=== PATIENT | male | born 1970 | race Two or more races ===

== ENCOUNTER 2016-06-13 17:01 | Emergency (ER) | payer MEDICAID ==
[~2016-06-13] VITALS: Ht 177.8 cm; Wt 121.1 kg
[~2016-06-13 17:01] MED LIST: AMLO10TA2 PO; INSLISPI SC; LEVEMIR SC; METF750T PO; METO100T87 PO
[2016-06-13 17:57] LABS: Basophils # (auto) 0.1 uL; DEFINITIVE VIEW TRANSMISSION; Eosinophils # (auto) 0.6 uL; Eosinophils % (auto) 8.6 % (0.0-7.0); Hemoglobin 13.1 g/dL (13.5-17.5); Lymphocytes # (auto) 2.5 uL; Lymphocytes % (auto) 33.2 % (10.0-50.0); Mean Corpuscular Hgb Conc. 31.9 g/dL (32.0-36.0); Mean Corpuscular Volume 68.8 fL (80.0-100.0); Mean Platelet Volume 8.9 fL (7.4-10.4); Monocytes # (auto) 0.6 uL; Monocytes % (auto) 8.7 % (0.0-12.0); Neutrophils # (auto) 3.6 uL; Neutrophils % (auto) 48.5 % (37.0-80.0); Platelet Count (auto) 361 10^3/uL (140-450); Red Cell Distribution Width 15.4 % (11.6-16.0); White Blood Cell 7.5 10^3/uL (4.4-10.8)
[2016-06-13] MEDS ORDERED: NITROGLYCERIN 2.5 MG CAP PO ONE (18:00)
[2016-06-13] MEDS ORDERED: LIDOCAINE VISCOUS 2% 15ML UD PO ONE (18:00)
[2016-06-13] MEDS ORDERED: DONNATAL 5ml ORAL Elix (BELLADONNA ALK-PHENOBARB) PO ONE (18:00)
[2016-06-13] MEDS ORDERED: ALUM & MAG HYDROX-SIMETH LIQ(MAALOX) 30 ML PO ONE (18:00)
[2016-06-13] MEDS ORDERED: ASPirin-EC 325mg tab PO ONE (18:00)
[2016-06-13 18:27] VITALS: BP 153/92
[2016-06-13 18:31] LABS: Albumin 3.6 g/dL (3.4-5.0); BUN/Creatinine Ratio 12.5; Bilirubin, Total 0.4 mg/dL (0.2-1.0); Calcium 8.8 mg/dL (8.5-10.1); Potassium 3.9 mmol/L (3.5-5.1); Total Protein 7.8 g/dL (6.4-8.2)
== END 2016-06-13 20:03 | disposition home or self-care (01) ==
LOC: ER 17:04
DX: R07.89 Other chest pain (principal); K21.9 Gastro-esophageal reflux disease without esophagitis; E11.9 Type 2 diabetes mellitus without complications; I10 Essential (primary) hypertension; Z88.0 Allergy status to penicillin; Z79.4 Long term (current) use of insulin
CPT/HCPCS: 36415; 71020; 80053; 84484; 85025; 93005

== ENCOUNTER 2016-10-08 09:59 | Inpatient (IN) | payer MEDICAID ==
[~2016-10-08] VITALS: Ht 177.8 cm; Wt 121.5 kg
[2016-10-08 10:35] LABS: Urine Bilirubin Negative (Negative); Urine Blood TRACE /uL (Negative); Urine Color Yellow (Yellow); Urine Nitrite Negative (Negative); Urine RBC 1 /hpf (0 - 3); Urine Squamous Epithelial Cell FEW /hpf (<5); Urine Urobilinogen Normal (Negative)
[2016-10-08 10:55] LABS: Urine Glucose 4+ mg/dL (Normal); Urine Ketone 2+ (Negative)
[2016-10-08 11:34] LABS: Basophils # (auto) 0.1 uL; Basophils % (auto) 0.7 % (0.0-2.0); CONDITION Y; DEFINITIVE SEE PRINTOUT; Eosinophils # (auto) 0.4 uL; Eosinophils % (auto) 4.6 % (0.0-7.0); Hematocrit 43.4 % (41.0-53.0); Hemoglobin 14.4 g/dL (13.5-17.5); Lymphocytes # (auto) 1.9 uL; Lymphocytes % (auto) 23.7 % (10.0-50.0); Mean Corpuscular Hemoglobin 22.6 pg (28.0-32.0); Mean Corpuscular Hgb Conc. 33.1 g/dL (32.0-36.0); Mean Corpuscular Volume 68.2 fL (80.0-100.0); Mean Platelet Volume 8.9 fL (7.4-10.4); Monocytes # (auto) 0.6 uL; Monocytes % (auto) 8.2 % (0.0-12.0); Neutrophils % (auto) 62.8 % (37.0-80.0); Platelet Count (auto) 346 10^3/uL (140-450); Red Cell Distribution Width 16.4 % (11.6-16.0); White Blood Cell 7.9 10^3/uL (4.4-10.8)
[2016-10-08 11:49] LABS: Albumin 3.4 g/dL (3.4-5.0); BUN/Creatinine Ratio 9.9; Bilirubin, Total 0.5 mg/dL (0.2-1.0); Calcium 8.5 mg/dL (8.5-10.1); Potassium 3.4 mmol/L (3.5-5.1); Total Protein 7.8 g/dL (6.4-8.2)
[2016-10-08] MEDS ORDERED: ASPirin-EC 81 mg tab PO ONE (12:00)
[2016-10-08] MEDS ORDERED: DILTIAZEM HCL 25 MG/5 ML VIAL IV ONE ×2 (12:00→13:15)
[2016-10-08 12:17] LABS: Giant Platelets Few; Microcytosis Slight; Platelet Estimate Adequate
[2016-10-08] MEDS ORDERED: LABETALOL HCL 5 MG/ML 4ML SYRINGE IV PRN (13:45)
[2016-10-08] MEDS ORDERED: DEXTROSE (50%) 50ML SYRG IV PRN (13:45)
[2016-10-08] MEDS ORDERED: LABETALOL HCL 5 MG/ML 4ML SYRINGE IV ONE (13:45)
[2016-10-08] MEDS ORDERED: cloNIDine HCL 0.1 MG TAB PO PRN (13:45)
[2016-10-08] MEDS ORDERED: CLOPIDOGREL BISULFATE 75 MG TAB PO ONE (14:00)
[2016-10-08] MEDS ORDERED: ZOLPIDEM TARTRATE 5 MG TAB PO PRN (14:00)
[2016-10-08] MEDS ORDERED: NITROGLYCERIN 0.4 MG SL TAB SL PRN ×2 (14:00)
[2016-10-08] MEDS ORDERED: ALUM & MAG HYDROX-SIMETH LIQ(MAALOX) 30 ML PO ONE (14:00)
[2016-10-08] MEDS ORDERED: ACETAMINOPHEN 325 MG TAB PO PRN (14:00)
[2016-10-08] MEDS ORDERED: ONDANSETRON HCL 4 MG/2 ML VIAL IV PRN (14:00)
[2016-10-08] MEDS ORDERED: LORazepam 0.5 MG TAB PO PRN (14:00)
[2016-10-08] MEDS ORDERED: ENALAPRIL MALEATE 2.5 MG TAB PO ONE (14:00)
[2016-10-08] MEDS ORDERED: DOCUSATE SOD 100 MG CAP PO ONE (14:00)
[2016-10-08] MEDS ORDERED: MORPHINE SULF INJ 2 MG/ML SYRINGE 1ML IV PRN ×2 (14:00)
[2016-10-08] MEDS: POTASSIUM CHL 10 Meq TABLET PO SCH (14:02)
[2016-10-08] MEDS: amLODIPine BESYLATE 5 MG TAB PO SCH (14:02)
[2016-10-08] MEDS: DILTIAZEM 125mg/125ml BAG KIT 125 ML IV SCH (14:50)
[2016-10-08] MEDS: SODIUM CHLOR 0.9% PF (SALINE LOCK) 10ML VIAL IV SCH ×2 (14:50→22:05)
[2016-10-08] MEDS ORDERED: POTASSIUM CHL 10% (20 MEQ/15ML) ORAL SOLN PO ONE ×2 (15:15→18:45)
[2016-10-08] MEDS ORDERED: METOPROLOL TARTRATE 1MG/1ML-5ML VIAL IV ONE ×3 (16:45→18:30)
[2016-10-08] MEDS: InsuLIN REG 1unit/0.01ml Soln (100units/ml) SC SCH ×2 (17:07→22:20)
[2016-10-08] MEDS: ACCU-CHEK COMFORT CURVE STRIP VI SCH ×2 (17:07→22:11)
[2016-10-08] MEDS ORDERED: METOPROLOL SUCCINATE XL 50 MG TAB PO SCH (22:00)
[2016-10-08] MEDS: METOPROLOL SUCCINATE XL 50 MG TAB PO SCH (22:00)
[2016-10-08] MEDS: ENALAPRIL MALEATE 2.5 MG TAB PO SCH (22:00)
[2016-10-08] MEDS: APIXABAN 5 MG TAB PO SCH (22:17)
[2016-10-08] MEDS: ATORVASTATIN 20 MG TAB PO SCH (22:17)
[2016-10-08] MEDS: INSULIN DETEMIR(LEVEMIR) 1unit/0.01ml Soln (100units/ml) SC SCH (22:21)
[2016-10-09] MEDS: DILTIAZEM 125mg/125ml BAG KIT 125 ML IV SCH (02:01)
[2016-10-09 04:05] LABS: Basophils # (auto) 0.1 uL; Basophils % (auto) 0.7 % (0.0-2.0); CONDITION Y; DEFINITIVE SEE PRINTOUT; Eosinophils # (auto) 0.4 uL; Eosinophils % (auto) 4.7 % (0.0-7.0); Hematocrit 39.3 % (41.0-53.0); Hemoglobin 12.8 g/dL (13.5-17.5); Lymphocytes # (auto) 3.4 uL; Lymphocytes % (auto) 40.3 % (10.0-50.0); Mean Corpuscular Hemoglobin 22.7 pg (28.0-32.0); Mean Corpuscular Hgb Conc. 32.6 g/dL (32.0-36.0); Mean Corpuscular Volume 69.7 fL (80.0-100.0); Mean Platelet Volume 8.9 fL (7.4-10.4); Monocytes # (auto) 0.8 uL; Neutrophils # (auto) 3.8 uL; Neutrophils % (auto) 44.3 % (37.0-80.0); Platelet Count (auto) 359 10^3/uL (140-450); Red Cell Distribution Width 16.4 % (11.6-16.0); White Blood Cell 8.5 10^3/uL (4.4-10.8)
[2016-10-09 04:25] LABS: BUN/Creatinine Ratio 9.9; Bilirubin, Total 0.5 mg/dL (0.2-1.0); Magnesium 2.2 mg/dL (1.6-2.6); Potassium 3.4 mmol/L (3.5-5.1); Total Protein 6.7 g/dL (6.4-8.2)
[2016-10-09] MEDS: SODIUM CHLOR 0.9% PF (SALINE LOCK) 10ML VIAL IV SCH ×3 (05:25→22:15)
[2016-10-09 06:02] LABS: B-Type Natriuretic Peptide 46.99 pg/mL (0-100)
[2016-10-09 06:04] LABS: Temperature: 23.5 C (20.0-25.0)
[2016-10-09] MEDS: ACCU-CHEK COMFORT CURVE STRIP VI SCH ×4 (06:36→22:18)
[2016-10-09] MEDS: InsuLIN REG 1unit/0.01ml Soln (100units/ml) SC SCH ×4 (06:36→22:18)
[2016-10-09 08:54] VITALS: BP 143/78
[2016-10-09] MEDS ORDERED: ADENOSINE 103 MG in GIVE UN-DILUTED 0 ML IV ONE (09:45)
[2016-10-09] MEDS: ASPirin 81 mg TAB PO SCH ×2 (10:00→12:02)
[2016-10-09] MEDS: METOPROLOL SUCCINATE XL 50 MG TAB PO SCH ×3 (10:00→22:17)
[2016-10-09] MEDS: POTASSIUM CHL 10 Meq TABLET PO SCH ×2 (10:00→12:02)
[2016-10-09] MEDS: DOCUSATE SOD 100 MG CAP PO SCH ×2 (10:00→12:02)
[2016-10-09] MEDS: APIXABAN 5 MG TAB PO SCH ×2 (10:00→22:15)
[2016-10-09] MEDS: amLODIPine BESYLATE 5 MG TAB PO SCH ×2 (10:00→12:03)
[2016-10-09] MEDS: CLOPIDOGREL BISULFATE 75 MG TAB PO SCH ×2 (10:00→12:03)
[2016-10-09] MEDS: ENALAPRIL MALEATE 2.5 MG TAB PO SCH ×3 (10:00→22:00)
[2016-10-09 13:00] VITALS: BP 141/95
[2016-10-09 17:00] VITALS: BP 141/92
[2016-10-09 20:00] VITALS: BP 132/81
[2016-10-09 21:30] VITALS: BP 132/81
[2016-10-09] MEDS: ATORVASTATIN 20 MG TAB PO SCH (22:15)
[2016-10-09] MEDS: INSULIN DETEMIR(LEVEMIR) 1unit/0.01ml Soln (100units/ml) SC SCH (22:26)
[2016-10-10 05:00] VITALS: BP 128/79
[2016-10-10 05:39] LABS: Basophils # (auto) 0.1 uL; Basophils % (auto) 0.9 % (0.0-2.0); CONDITION Y; DEFINITIVE SEE PRINTOUT; Eosinophils # (auto) 0.5 uL; Eosinophils % (auto) 5.4 % (0.0-7.0); Hematocrit 42.5 % (41.0-53.0); Hemoglobin 13.8 g/dL (13.5-17.5); Lymphocytes # (auto) 2.9 uL; Lymphocytes % (auto) 33.5 % (10.0-50.0); Mean Corpuscular Hemoglobin 22.8 pg (28.0-32.0); Mean Corpuscular Hgb Conc. 32.5 g/dL (32.0-36.0); Mean Corpuscular Volume 70.2 fL (80.0-100.0); Mean Platelet Volume 9.1 fL (7.4-10.4); Monocytes # (auto) 0.9 uL; Monocytes % (auto) 9.8 % (0.0-12.0); Neutrophils # (auto) 4.4 uL; Neutrophils % (auto) 50.4 % (37.0-80.0); Platelet Count (auto) 374 10^3/uL (140-450); Red Cell Distribution Width 16.5 % (11.6-16.0); White Blood Cell 8.7 10^3/uL (4.4-10.8)
[2016-10-10 06:06] LABS: Albumin 3.1 g/dL (3.4-5.0); BUN/Creatinine Ratio 13.5; Bilirubin, Total 0.5 mg/dL (0.2-1.0); Calcium 8.5 mg/dL (8.5-10.1); Total Protein 7.1 g/dL (6.4-8.2)
[2016-10-10] MEDS: SODIUM CHLOR 0.9% PF (SALINE LOCK) 10ML VIAL IV SCH (06:29)
[2016-10-10] MEDS: ACCU-CHEK COMFORT CURVE STRIP VI SCH (06:31)
[2016-10-10] MEDS: InsuLIN REG 1unit/0.01ml Soln (100units/ml) SC SCH (06:32)
[2016-10-10 09:00] VITALS: BP 140/90
[2016-10-10] MEDS: CLOPIDOGREL BISULFATE 75 MG TAB PO SCH (10:38)
[2016-10-10] MEDS: METOPROLOL SUCCINATE XL 50 MG TAB PO SCH (10:38)
[2016-10-10] MEDS: ENALAPRIL MALEATE 2.5 MG TAB PO SCH (10:39)
[2016-10-10] MEDS: POTASSIUM CHL 10 Meq TABLET PO SCH (10:39)
[2016-10-10] MEDS: amLODIPine BESYLATE 5 MG TAB PO SCH (10:39)
[2016-10-10] MEDS: APIXABAN 5 MG TAB PO SCH (10:40)
[2016-10-10 13:00] VITALS: BP 147/96
== END 2016-10-10 14:00 | disposition home or self-care (01) | DRG 201 ==
LOC: ER 09:59 → TELE 10:00 → TELE-CENTR 10-09 08:29
PROVIDERS: ADMIT Nurse Practitioner Family; ATTEND Internal Medicine
DX: I48.92 Unspecified atrial flutter (principal); I11.0 Hypertensive heart disease with heart failure; E87.8 Other disorders of electrolyte and fluid balance, not elsewhere classified; E87.1 Hypo-osmolality and hyponatremia; E87.6 Hypokalemia; E66.01 Morbid (severe) obesity due to excess calories; Z68.38 Body mass index [BMI] 38.0-38.9, adult; E11.9 Type 2 diabetes mellitus without complications; R07.89 Other chest pain; I48.91 Unspecified atrial fibrillation; Z82.49 Family history of ischemic heart disease and other diseases of the circulatory system; Z83.3 Family history of diabetes mellitus; Z88.0 Allergy status to penicillin; Z79.4 Long term (current) use of insulin; Z90.89 Acquired absence of other organs; Z71.89 Other specified counseling
CPT/HCPCS: 36415; 71010; 78452; 80053; 80061; 80307; 81001; 82962; 83036; 83735; 83880; 84484; 85025; 93005; 93017; 93306; 96374; 96376; J0153; J1815; J3490

== ENCOUNTER 2016-11-07 18:08 | Inpatient (IN) | payer MEDICAID ==
[~2016-11-07] VITALS: Ht 177.8 cm; Wt 121.1 kg
[2016-11-07] MEDS ORDERED: SODIUM CHLORIDE 0.9% 1,000 ML IV ONE (18:30)
[2016-11-07 18:38] LABS: Basophils # (auto) 0.1 uL; Basophils % (auto) 0.7 % (0.0-2.0); CONDITION Y; DEFINITIVE SEE PRINTOUT; Eosinophils # (auto) 0.4 uL; Eosinophils % (auto) 4.4 % (0.0-7.0); Hematocrit 43.6 % (41.0-53.0); Hemoglobin 14.2 g/dL (13.5-17.5); Lymphocytes # (auto) 3.6 uL; Lymphocytes % (auto) 36.8 % (10.0-50.0); Mean Corpuscular Hemoglobin 22.9 pg (28.0-32.0); Mean Corpuscular Hgb Conc. 32.5 g/dL (32.0-36.0); Mean Corpuscular Volume 70.5 fL (80.0-100.0); Mean Platelet Volume 8.7 fL (7.4-10.4); Monocytes # (auto) 0.9 uL; Monocytes % (auto) 8.9 % (0.0-12.0); Neutrophils # (auto) 4.8 uL; Neutrophils % (auto) 49.2 % (37.0-80.0); Platelet Count (auto) 435 10^3/uL (140-450); Red Cell Distribution Width 16.5 % (11.6-16.0); White Blood Cell 9.7 10^3/uL (4.4-10.8)
[2016-11-07 19:05] LABS: Albumin 3.7 g/dL (3.4-5.0); BUN/Creatinine Ratio 13.7; Bilirubin, Total 0.4 mg/dL (0.2-1.0); Calcium 8.9 mg/dL (8.5-10.1); Potassium 3.8 mmol/L (3.5-5.1); Total Protein 8.4 g/dL (6.4-8.2)
[2016-11-07] MEDS ORDERED: DILTIAZEM HCL 25 MG/5 ML VIAL IV ONE (20:00)
[2016-11-07] MEDS ORDERED: ASPirin 81 mg TAB PO ONE (20:00)
[2016-11-07] MEDS ORDERED: DILTIAZEM 125mg/125ml BAG KIT 100 ML IV SCH (21:01)
[2016-11-07] MEDS ORDERED: TEMAZEPAM 15 MG CAP PO PRN (22:00)
[2016-11-07] MEDS ORDERED: NITROGLYCERIN 0.4 MG SL TAB SL PRN (22:00)
[2016-11-07] MEDS ORDERED: MORPHINE SULF INJ 2 MG/ML SYRINGE 1ML IV PRN (22:00)
[2016-11-07] MEDS ORDERED: ACETAMINOPHEN 325 MG TAB PO PRN (22:00)
[2016-11-07] MEDS ORDERED: HYDROcodone-ACET 5/325MG TAB PO PRN (22:00)
[2016-11-07] MEDS ORDERED: ONDANSETRON HCL 4 MG/2 ML VIAL IV PRN (22:00)
[2016-11-07] MEDS ORDERED: DEXTROSE (50%) 50ML SYRG IV PRN (22:30)
[2016-11-07] MEDS: METOPROLOL TARTRATE 50 MG TAB PO SCH (22:51)
[2016-11-07] MEDS: FAMOTIDINE 20 MG TAB PO SCH (22:51)
[2016-11-07] MEDS: ATORVASTATIN 20 MG TAB PO SCH (22:51)
[2016-11-08] MEDS: ACCU-CHEK COMFORT CURVE STRIP VI SCH ×4 (00:01→17:37)
[2016-11-08] MEDS: InsuLIN REG 1unit/0.01ml Soln (100units/ml) SC SCH ×4 (00:04→17:37)
[2016-11-08 06:10] LABS: Basophils # (auto) 0.1 uL; Basophils % (auto) 1.1 % (0.0-2.0); CONDITION Y; DEFINITIVE SEE PRINTOUT; Eosinophils # (auto) 0.4 uL; Eosinophils % (auto) 4.9 % (0.0-7.0); Hematocrit 39.6 % (41.0-53.0); Hemoglobin 12.9 g/dL (13.5-17.5); Lymphocytes # (auto) 2.3 uL; Lymphocytes % (auto) 31.4 % (10.0-50.0); Mean Corpuscular Hemoglobin 22.8 pg (28.0-32.0); Mean Corpuscular Hgb Conc. 32.6 g/dL (32.0-36.0); Mean Corpuscular Volume 69.8 fL (80.0-100.0); Mean Platelet Volume 8.6 fL (7.4-10.4); Monocytes # (auto) 0.7 uL; Monocytes % (auto) 9.5 % (0.0-12.0); Neutrophils # (auto) 3.8 uL; Neutrophils % (auto) 53.1 % (37.0-80.0); Platelet Count (auto) 380 10^3/uL (140-450); Red Cell Distribution Width 16.8 % (11.6-16.0); White Blood Cell 7.3 10^3/uL (4.4-10.8)
[2016-11-08 06:28] LABS: Albumin 3.3 g/dL (3.4-5.0); BUN/Creatinine Ratio 14.1; Bilirubin, Total 0.6 mg/dL (0.2-1.0); Potassium 3.6 mmol/L (3.5-5.1); Total Protein 7.3 g/dL (6.4-8.2)
[2016-11-08 09:08] VITALS: BP 140/87
[2016-11-08] MEDS ORDERED: APIX5TAB OR (09:30)
[2016-11-08] MEDS ORDERED: CLON0.1T PO (09:30)
[2016-11-08] MEDS ORDERED: ASPI81TA27 PO (09:30)
[2016-11-08 09:56] LABS: Urine Bilirubin Negative (Negative); Urine Blood Negative /uL (Negative); Urine Color Yellow (Yellow); Urine Ketone Negative (Negative); Urine Nitrite Negative (Negative); Urine RBC <1 /hpf (0 - 3); Urine Squamous Epithelial Cell FEW /hpf (<5); Urine Urobilinogen Normal (Negative); Urine pH 6.5 (5.0-8.0)
[2016-11-08 09:57] LABS: Urine Glucose 4+ mg/dL (Normal)
[2016-11-08 10:00] VITALS: BP 121/76
[2016-11-08] MEDS: METOPROLOL TARTRATE 50 MG TAB PO SCH (10:00)
[2016-11-08] MEDS: ASPirin 81 mg TAB PO SCH (10:00)
[2016-11-08] MEDS: FAMOTIDINE 20 MG TAB PO SCH ×2 (10:01→22:04)
[2016-11-08] MEDS: amLODIPine BESYLATE 5 MG TAB PO SCH (10:01)
[2016-11-08 13:00] VITALS: BP 126/77
[2016-11-08 16:46] VITALS: BP 120/71
[2016-11-08] MEDS: METOPROLOL SUCCINATE XL 50 MG TAB PO SCH (17:09)
[2016-11-08] MEDS ORDERED: POTASSIUM CHL 10% (20 MEQ/15ML) ORAL SOLN PO ONE (17:15)
[2016-11-08 21:44] VITALS: BP 120/76
[2016-11-08] MEDS: ATORVASTATIN 20 MG TAB PO SCH (22:04)
[2016-11-09] MEDS: ACCU-CHEK COMFORT CURVE STRIP VI SCH ×2 (00:11→05:24)
[2016-11-09] MEDS: InsuLIN REG 1unit/0.01ml Soln (100units/ml) SC SCH ×2 (00:11→05:24)
[2016-11-09 04:38] VITALS: BP 138/92
[2016-11-09 09:00] VITALS: BP 128/78
[2016-11-09] MEDS: ASPirin 81 mg TAB PO SCH (10:20)
[2016-11-09] MEDS: METOPROLOL SUCCINATE XL 50 MG TAB PO SCH (10:21)
[2016-11-09] MEDS: amLODIPine BESYLATE 5 MG TAB PO SCH (10:21)
[2016-11-09] MEDS: FAMOTIDINE 20 MG TAB PO SCH (10:21)
[2016-11-09] MEDS ORDERED: APIXABAN 5 MG TAB PO SCH (10:42)
[2016-11-09 12:01] VITALS: BP 128/78
[2016-11-14] MEDS ORDERED: APIXABAN 5 MG TAB PO SCH (22:00)
== END 2016-11-09 12:14 | disposition home or self-care (01) | DRG 201 ==
LOC: ER 18:12 → TELE 18:13 → TELE-E-ADS 11-08 08:46 → TELE-WESTW 11-08 09:50
PROVIDERS: ADMIT Internal Medicine; ATTEND Internal Medicine
DX: I48.91 Unspecified atrial fibrillation (principal); E66.01 Morbid (severe) obesity due to excess calories; I10 Essential (primary) hypertension; E11.9 Type 2 diabetes mellitus without complications; I48.92 Unspecified atrial flutter; Z83.3 Family history of diabetes mellitus; Z82.49 Family history of ischemic heart disease and other diseases of the circulatory system; Z88.0 Allergy status to penicillin; Z90.49 Acquired absence of other specified parts of digestive tract; Z79.899 Other long term (current) drug therapy; Z79.4 Long term (current) use of insulin; Z68.38 Body mass index [BMI] 38.0-38.9, adult
CPT/HCPCS: 36415; 71020; 80053; 81001; 82962; 84484; 85025; 87081; 93005; 96361; 96365; 96375; 99291; J1815

== ENCOUNTER 2017-04-22 14:19 | Inpatient (IN) | payer MEDICAID ==
[~2017-04-22] VITALS: Ht 177.8 cm; Wt 115.4 kg
[~2017-04-22 14:19] MED LIST changes: +APIX5TAB OR; +ASPI81TA27 PO; +CLON0.1T PO; -METF750T PO
[2017-04-22 16:51] LABS: Basophils # (auto) 0.1 uL; Lymphocytes # (auto) 1.7 uL; Monocytes # (auto) 0.5 uL; Nucleated Red Blood Cells % 0.1 %
[2017-04-22 16:52] LABS: Basophils % (auto) 0.9 % (0.0-2.0); Eosinophils # (auto) 0.3 uL; Eosinophils % (auto) 5.1 % (0.0-7.0); Hematocrit 42.8 % (41.0-53.0); Hemoglobin 13.8 g/dL (13.5-17.5); Mean Corpuscular Hemoglobin 22.4 pg (28.0-32.0); Mean Corpuscular Hgb Conc. 32.3 g/dL (32.0-36.0); Mean Corpuscular Volume 69.3 fL (80.0-100.0); Monocytes % (auto) 8.6 % (0.0-12.0); Neutrophils # (auto) 3.5 uL; Neutrophils % (auto) 57.4 % (37.0-80.0); Platelet Count (auto) 337 10^3/uL (140-450); Red Blood Cells 6.18 10^6/uL (4.5-5.90); Red Cell Distribution Width 17.3 % (11.8-14.3)
[2017-04-22 17:09] LABS: Albumin 3.6 g/dL (3.4-5.0); Bilirubin, Total 0.5 mg/dL (0.2-1.0); Calcium 8.6 mg/dL (8.5-10.1); Magnesium 2.1 mg/dL (1.6-2.6); Potassium 3.8 mmol/L (3.5-5.1); Total Protein 8.1 g/dL (6.4-8.2)
[2017-04-22 19:00] LABS: Urine Bacteria NONE SEEN /hpf (None Seen); Urine Blood Negative /uL (Negative); Urine Specific Gravity 1.016 (1.001-1.035); Urine WBC 4 /hpf (0 - 3)
[2017-04-22] MEDS ORDERED: NITROGLYCERIN 0.4 MG SL TAB SL PRN ×2 (19:30)
[2017-04-22] MEDS ORDERED: LORazepam 0.5 MG TAB PO PRN (19:30)
[2017-04-22] MEDS ORDERED: ALUM & MAG HYDROX-SIMETH LIQ(MAALOX) 30 ML PO ONE (19:30)
[2017-04-22] MEDS ORDERED: ONDANSETRON HCL 4 MG/2 ML VIAL IV PRN (19:30)
[2017-04-22] MEDS ORDERED: MORPHINE SULF INJ 2 MG/ML SYRINGE 1ML IV PRN (19:30)
[2017-04-22] MEDS ORDERED: ACETAMINOPHEN 325 MG TAB PO PRN (19:30)
[2017-04-22] MEDS ORDERED: ZOLPIDEM TARTRATE 5 MG TAB PO PRN (19:30)
[2017-04-22] MEDS ORDERED: MORPHINE SULFATE 10 MG/ML INJ 1ML SDV IV PRN (19:30)
[2017-04-22] MEDS ORDERED: DEXTROSE (50%) 50ML SYRG IV PRN (19:45)
[2017-04-22] MEDS ORDERED: cloNIDine HCL 0.1 MG TAB PO PRN (19:45)
[2017-04-22] MEDS: cloNIDine HCL 0.1 MG TAB PO SCH (22:00)
[2017-04-22] MEDS: ATORVASTATIN 20 MG TAB PO SCH (22:00)
[2017-04-22] MEDS: ENALAPRIL MALEATE 2.5 MG TAB PO SCH (22:00)
[2017-04-22 23:06] VITALS: BP 127/78
[2017-04-22] MEDS ORDERED: METO100T87 PO (23:42)
[2017-04-23] MEDS: ATORVASTATIN 20 MG TAB PO SCH ×2 (00:16→22:28)
[2017-04-23] MEDS: SODIUM CHLOR 0.9% PF (SALINE LOCK) 10ML VIAL IV SCH ×4 (00:16→22:00)
[2017-04-23] MEDS: METOPROLOL TARTRATE 50 MG TAB PO SCH ×3 (00:18→22:28)
[2017-04-23] MEDS: ENALAPRIL MALEATE 2.5 MG TAB PO SCH ×3 (00:18→22:00)
[2017-04-23] MEDS: InsuLIN REG 1unit/0.01ml Soln (100units/ml) SC SCH ×5 (00:19→22:30)
[2017-04-23] MEDS: ACCU-CHEK COMFORT CURVE STRIP VI SCH ×5 (00:19→22:29)
[2017-04-23] MEDS: INSULIN DETEMIR(LEVEMIR) 1unit/0.01ml Soln (100units/ml) SC SCH ×2 (00:37→22:30)
[2017-04-23 03:46] LABS: Basophils # (auto) 0.1 uL; Eosinophils # (auto) 0.4 uL; Mean Corpuscular Hemoglobin 22.2 pg (28.0-32.0); Mean Corpuscular Hgb Conc. 32.3 g/dL (32.0-36.0); Monocytes # (auto) 0.8 uL; Neutrophils # (auto) 3.6 uL; Nucleated Red Blood Cells % 0.1 %
[2017-04-23 03:49] LABS: Basophils % (auto) 1.1 % (0.0-2.0); Eosinophils % (auto) 5.9 % (0.0-7.0); Hematocrit 40.8 % (41.0-53.0); Hemoglobin 13.2 g/dL (13.5-17.5); Lymphocytes # (auto) 2.6 uL; Lymphocytes % (auto) 34.6 % (10.0-50.0); Mean Corpuscular Volume 68.6 fL (80.0-100.0); Monocytes % (auto) 10.4 % (0.0-12.0); Platelet Count (auto) 328 10^3/uL (140-450); Red Blood Cells 5.96 10^6/uL (4.5-5.90); Red Cell Distribution Width 16.9 % (11.8-14.3); White Blood Cell 7.5 10^3/uL (4.4-10.8)
[2017-04-23 04:08] LABS: Albumin 3.4 g/dL (3.4-5.0); Bilirubin, Total 0.6 mg/dL (0.2-1.0); Calcium 8.5 mg/dL (8.5-10.1); Potassium 3.3 mmol/L (3.5-5.1); Total Protein 7.5 g/dL (6.4-8.2)
[2017-04-23 04:57] VITALS: BP 113/69
[2017-04-23 08:00] VITALS: BP 148/59
[2017-04-23 09:00] VITALS: BP 148/59
[2017-04-23] MEDS: cloNIDine HCL 0.1 MG TAB PO SCH ×2 (10:00→22:00)
[2017-04-23] MEDS ORDERED: CLOPIDOGREL BISULFATE 75 MG TAB PO SCH (10:00)
[2017-04-23] MEDS: DOCUSATE SOD 100 MG CAP PO SCH (10:00)
[2017-04-23] MEDS: ASPirin 81 mg TAB PO SCH (10:00)
[2017-04-23] MEDS ORDERED: POTASSIUM CHL 20 Meq TABLET PO ONE (10:15)
[2017-04-23] MEDS: amLODIPine BESYLATE 5 MG TAB PO SCH (10:46)
[2017-04-23] MEDS: PANTOPRAZOLE 40 MG TAB PO SCH (10:47)
[2017-04-23 13:14] VITALS: BP 144/75
[2017-04-23] MEDS ORDERED: IODIXANOL 320MG/ML 100ML BTL IV ONE (14:20)
[2017-04-23] MEDS ORDERED: LIDOCAINE 2%HCL (LOCAL ANESTH.) INJ 20ML MDV ONE (14:20)
[2017-04-23] MEDS ORDERED: fentaNYL CITRATE 100 MCG/2 ML VL ONE (14:23)
[2017-04-23] MEDS ORDERED: MIDAZOLAM HCL 1MG/1ML-2 ML VIAL ONE (14:23)
[2017-04-23] MEDS ORDERED: SODIUM CHLORIDE 0.9% 1,000 ML IV SCH (15:07)
[2017-04-23 17:00] VITALS: BP 130/70
[2017-04-23] MEDS ORDERED: MORPHINE SULFATE 10 MG/ML INJ 1ML SDV IV ONE (19:00)
[2017-04-23 22:00] VITALS: BP 142/80
[2017-04-24 05:00] VITALS: BP 113/66
[2017-04-24 05:42] LABS: BUN/Creatinine Ratio 15.3; Calcium 8.5 mg/dL (8.5-10.1); Potassium 3.8 mmol/L (3.5-5.1)
[2017-04-24] MEDS: SODIUM CHLOR 0.9% PF (SALINE LOCK) 10ML VIAL IV SCH (05:51)
[2017-04-24] MEDS: ACCU-CHEK COMFORT CURVE STRIP VI SCH ×2 (06:34→11:00)
[2017-04-24] MEDS: InsuLIN REG 1unit/0.01ml Soln (100units/ml) SC SCH ×3 (06:35→11:28)
[2017-04-24 09:18] VITALS: BP 134/73
[2017-04-24] MEDS: cloNIDine HCL 0.1 MG TAB PO SCH (09:25)
[2017-04-24] MEDS: PANTOPRAZOLE 40 MG TAB PO SCH (09:26)
[2017-04-24] MEDS: ENALAPRIL MALEATE 2.5 MG TAB PO SCH ×2 (09:27→09:30)
[2017-04-24] MEDS: ASPirin 81 mg TAB PO SCH (09:27)
[2017-04-24] MEDS: amLODIPine BESYLATE 5 MG TAB PO SCH (09:27)
[2017-04-24] MEDS: DOCUSATE SOD 100 MG CAP PO SCH (09:28)
[2017-04-24] MEDS: METOPROLOL TARTRATE 50 MG TAB PO SCH (09:28)
[2017-04-24 12:10] VITALS: BP 140/71
== END 2017-04-24 13:16 | disposition home or self-care (01) | DRG 190 ==
LOC: ER 14:19 → TELE 14:20 → TELE-WESTW 22:20
PROVIDERS: ADMIT Internal Medicine; ATTEND Internal Medicine
PROC: B2111ZZ Fluoroscopy of Multiple Coronary Arteries using Low Osmolar Contrast (ICD-10-PCS; principal; 2017-04-23)
PROC: B2151ZZ Fluoroscopy of Left Heart using Low Osmolar Contrast (ICD-10-PCS; 2017-04-23)
PROC: B41F1ZZ Fluoroscopy of Right Lower Extremity Arteries using Low Osmolar Contrast (ICD-10-PCS; 2017-04-23)
PROC: 4A023N7 Measurement of Cardiac Sampling and Pressure, Left Heart, Percutaneous Approach (ICD-10-PCS; 2017-04-23)
DX: I21.4 Non-ST elevation (NSTEMI) myocardial infarction (principal); D68.69 Other thrombophilia; E10.9 Type 1 diabetes mellitus without complications; I48.92 Unspecified atrial flutter; I10 Essential (primary) hypertension; I24.9 Acute ischemic heart disease, unspecified; I48.0 Paroxysmal atrial fibrillation; I25.10 Atherosclerotic heart disease of native coronary artery without angina pectoris; E66.01 Morbid (severe) obesity due to excess calories; Z79.01 Long term (current) use of anticoagulants; Z82.49 Family history of ischemic heart disease and other diseases of the circulatory system; Z83.3 Family history of diabetes mellitus; Z88.0 Allergy status to penicillin; Z68.36 Body mass index [BMI] 36.0-36.9, adult
CPT/HCPCS: 36415; 71045; 75710; 80048; 80053; 80061; 81001; 82962; 83036; 83735; 83880; 84443; 84484; 85025; 87081; 93005; 93306; 93458; 94761; 99152; J1815; J2250; Q9967

== ENCOUNTER 2018-12-21 03:22 | Emergency (ER) | payer MEDICAID ==
[~2018-12-21] VITALS: Ht 177.8 cm; Wt 121.6 kg
[~2018-12-21 03:22] MED LIST changes: +AMLO10TA13 PO; -AMLO10TA2 PO; +ASPI-404 PO; -ASPI81TA27 PO
[2018-12-21 04:05] LABS: Urine Bacteria NONE SEEN /hpf (None Seen); Urine Blood Negative /uL (Negative); Urine Specific Gravity 1.012 (1.001-1.035); Urine WBC 1 /hpf (0 - 3)
[2018-12-21 04:30] LABS: Basophils # (auto) 0.1 uL; Eosinophils # (auto) 0.4 uL; Hemoglobin 11.5 g/dL (13.5-17.5); Monocytes # (auto) 0.6 uL; Neutrophils # (auto) 3.4 uL; Nucleated Red Blood Cells % 0.1 %; White Blood Cell 7.3 10^3/uL (4.4-10.8)
[2018-12-21 04:32] LABS: Basophils % (auto) 1.1 % (0.0-2.0); Eosinophils % (auto) 5.4 % (0.0-7.0); Hematocrit 36.5 % (41.0-53.0); Lymphocytes # (auto) 2.8 uL; Lymphocytes % (auto) 38.1 % (10.0-50.0); Mean Corpuscular Hemoglobin 19.6 pg (28.0-32.0); Mean Corpuscular Hgb Conc. 31.6 g/dL (32.0-36.0); Monocytes % (auto) 8.6 % (0.0-12.0); Neutrophils % (auto) 46.8 % (37.0-80.0); Platelet Count (auto) 371 10^3/uL (140-450); Red Blood Cells 5.89 10^6/uL (4.5-5.90); Red Cell Distribution Width 17.6 % (11.8-14.3)
[2018-12-21 04:49] LABS: Albumin 3.7 g/dL (3.4-5.0); Potassium 3.6 mmol/L (3.5-5.1)
[2018-12-21 04:52] LABS: BUN/Creatinine Ratio 13.8; Bilirubin, Total 0.4 mg/dL (0.2-1.0); Total Protein 7.9 g/dL (6.4-8.2)
[2018-12-21 09:00] VITALS: BP 156/88
== END 2018-12-21 09:28 | disposition home or self-care (01) ==
LOC: ER 03:22
DX: M54.5 Low back pain (principal); R10.9 Unspecified abdominal pain; I10 Essential (primary) hypertension; E11.65 Type 2 diabetes mellitus with hyperglycemia; I48.91 Unspecified atrial fibrillation; Z88.0 Allergy status to penicillin; Z79.899 Other long term (current) drug therapy; Z79.4 Long term (current) use of insulin; Z79.82 Long term (current) use of aspirin; Z90.49 Acquired absence of other specified parts of digestive tract
CPT/HCPCS: 36415; 74176; 80053; 81001; 82962; 85025

== ENCOUNTER 2019-01-20 02:15 | Emergency (ER) | payer MEDICAID ==
[~2019-01-20] VITALS: Ht 177.8 cm; Wt 119.7 kg
[2019-01-20 03:02] LABS: Basophils # (auto) 0.1 uL; Eosinophils # (auto) 0.5 uL; Nucleated Red Blood Cells % 0.1 %
[2019-01-20 03:03] LABS: Basophils % (auto) 1.4 % (0.0-2.0); Eosinophils % (auto) 6.5 % (0.0-7.0); Hematocrit 38.2 % (41.0-53.0); Hemoglobin 11.9 g/dL (13.5-17.5); Lymphocytes # (auto) 2.7 uL; Lymphocytes % (auto) 32.8 % (10.0-50.0); Mean Corpuscular Hemoglobin 19.5 pg (28.0-32.0); Mean Corpuscular Hgb Conc. 31.2 g/dL (32.0-36.0); Mean Corpuscular Volume 62.4 fL (80.0-100.0); Monocytes # (auto) 0.8 uL; Monocytes % (auto) 9.3 % (0.0-12.0); Neutrophils # (auto) 4.1 uL; Platelet Count (auto) 350 10^3/uL (140-450); Red Blood Cells 6.12 10^6/uL (4.5-5.90); Red Cell Distribution Width 17.7 % (11.8-14.3); White Blood Cell 8.2 10^3/uL (4.4-10.8)
[2019-01-20 03:17] LABS: INR < 0.93 (0.9-1.15); Partial Thromboplastin Time 26.2 sec (23.64-32.05)
[2019-01-20 03:19] LABS: Albumin 3.6 g/dL (3.4-5.0); BUN/Creatinine Ratio 11.3; Calcium 9.1 mg/dL (8.5-10.1); Magnesium 2.2 mg/dL (1.6-2.6); Potassium 3.7 mmol/L (3.5-5.1)
[2019-01-20 03:28] LABS: Urine Bacteria FEW /hpf (None Seen); Urine Blood Negative /uL (Negative); Urine Mucus FEW (None Seen); Urine Specific Gravity 1.019 (1.001-1.035); Urine WBC 2 /hpf (0 - 3)
[2019-01-20 03:33] LABS: Bilirubin, Total 0.2 mg/dL (0.2-1.0)
[2019-01-20] MEDS ORDERED: MORPHINE SULFATE 4 MG/ML SYR/VIAL IV ONE (06:00)
[2019-01-20] MEDS ORDERED: ONDANSETRON HCL 4 MG/2 ML VIAL IV ONE (06:00)
[2019-01-20 07:52] VITALS: BP 133/70
== END 2019-01-20 08:02 | disposition home or self-care (01) ==
LOC: ER 02:20
DX: K59.8 Other specified functional intestinal disorders (principal); I10 Essential (primary) hypertension; D50.9 Iron deficiency anemia, unspecified; I48.91 Unspecified atrial fibrillation; K42.9 Umbilical hernia without obstruction or gangrene; Z88.0 Allergy status to penicillin; Z79.82 Long term (current) use of aspirin; Z79.4 Long term (current) use of insulin; Z79.899 Other long term (current) drug therapy
CPT/HCPCS: 36415; 74176; 80053; 81001; 82150; 83690; 83735; 85025; 85610; 85730; 96374; 96375; 99284; J2270; J2405

== ENCOUNTER 2019-02-18 06:55 | Emergency (ER) | payer MEDICAID ==
[~2019-02-18] VITALS: Ht 177.8 cm; Wt 120.7 kg
[2019-02-18] MEDS ORDERED: KETOROLAC TROMETH 60MG/2ML VIAL IM ONE (07:45)
[2019-02-18 07:52] VITALS: BP 149/79
== END 2019-02-18 08:32 | disposition home or self-care (01) ==
LOC: ER 06:55
DX: S29.011A Strain of muscle and tendon of front wall of thorax, initial encounter (principal); E11.9 Type 2 diabetes mellitus without complications; I10 Essential (primary) hypertension; Z88.0 Allergy status to penicillin; Z79.82 Long term (current) use of aspirin; Z79.4 Long term (current) use of insulin; X58.XXXA Exposure to other specified factors, initial encounter; Y93.89 Activity, other specified; Y92.89 Other specified places as the place of occurrence of the external cause; Y99.8 Other external cause status
CPT/HCPCS: 71101; 96372; 99283; J1885

== ENCOUNTER → 2019-09-26 | Emergency (ER) | payer MEDICAID ==
[~2019-09-26] VITALS: Ht 177.8 cm; Wt 11.8 kg
[~2019-09-26] MED LIST changes: +ALBUAER3 IN; +ASCO10003 PO; -ASPI-404 PO; +ASPI-543 PO; +CHOL1000 PO; +FURO20TA3 PO; +LEVO750T64 PO; +METH4PAK PO; +MULTTAB75 PO; +POTA-220 PO
[2019-09-26 00:50] VITALS: BP 151/80
[2019-09-26 03:44] LABS: Basophils # (auto) 0.1 10 ^3/uL (0-0.2); Basophils % (auto) 0.9 % (0.0-2.0); Eosinophils # (auto) 0.1 10 ^3/uL (0-0.8); Hematocrit 36.5 % (41.0-53.0); Hemoglobin 11.4 g/dL (13.5-17.5); Lymphocytes # (auto) 1.4 10 ^3/uL (0.4-5.4); Mean Corpuscular Hgb Conc. 31.3 g/dL (32.0-36.0); Monocytes # (auto) 0.7 10 ^3/uL (0-1.3); Neutrophils # (auto) 4.1 10 ^3/uL (1.6-8.6); Nucleated Red Blood Cells % 0.1 %; White Blood Cell 6.4 10^3/uL (4.4-10.8)
[2019-09-26 03:46] LABS: Eosinophils % (auto) 1.5 % (0.0-7.0); Lymphocytes % (auto) 21.5 % (10.0-50.0); Mean Corpuscular Volume 60.6 fL (80.0-100.0); Monocytes % (auto) 11.3 % (0.0-12.0); Neutrophils % (auto) 64.8 % (37.0-80.0); Platelet Count (auto) 350 10^3/uL (140-450); Red Blood Cells 6.03 10^6/uL (4.5-5.90); Red Cell Distribution Width 18.5 % (11.8-14.3)
[2019-09-26 04:03] LABS: Albumin 3.6 g/dL (3.4-5.0); Calcium 8.5 mg/dL (8.5-10.1); Potassium 3.4 mmol/L (3.5-5.1)
[2019-09-26 04:04] LABS: BUN/Creatinine Ratio 10.2
[2019-09-26 04:08] LABS: Bilirubin, Total 0.4 mg/dL (0.2-1.0); Total Protein 8.3 g/dL (6.4-8.2)
== END | disposition home or self-care (01) ==
LOC: ER 00:07
DX: U07.1 COVID-19 (principal); J01.00 Acute maxillary sinusitis, unspecified; I48.91 Unspecified atrial fibrillation; I10 Essential (primary) hypertension; E11.9 Type 2 diabetes mellitus without complications
CPT/HCPCS: 36415; 71045; 80053; 82728; 85025; 87070; 87804; 87880; 93005; 99285; C9803; U0003

== ENCOUNTER 2019-10-02 22:53 | Inpatient (IN) | payer MEDICAID, OTHER ==
[~2019-10-02] VITALS: Ht 177.8 cm; Wt 113.1 kg
[~2019-10-02 22:53] MED LIST changes: -ALBUAER3 IN; -ASCO10003 PO; -CHOL1000 PO; -FURO20TA3 PO; -LEVO750T64 PO; -METH4PAK PO; -MULTTAB75 PO; -POTA-220 PO
[2019-10-03 00:06] LABS: Basophils # (auto) 0 10 ^3/uL (0-0.2); Basophils % (auto) 0.3 % (0.0-2.0); Eosinophils # (auto) 0 10 ^3/uL (0-0.8)
[2019-10-03 00:07] LABS: Eosinophils % (auto) 0.4 % (0.0-7.0); Hematocrit 35.6 % (41.0-53.0); Hemoglobin 11.2 g/dL (13.5-17.5); Lymphocytes # (auto) 0.9 10 ^3/uL (0.4-5.4); Lymphocytes % (auto) 14.4 % (10.0-50.0); Mean Corpuscular Hemoglobin 18.9 pg (28.0-32.0); Mean Corpuscular Hgb Conc. 31.4 g/dL (32.0-36.0); Mean Corpuscular Volume 60.1 fL (80.0-100.0); Monocytes # (auto) 0.4 10 ^3/uL (0-1.3); Monocytes % (auto) 7.1 % (0.0-12.0); Neutrophils # (auto) 4.6 10 ^3/uL (1.6-8.6); Neutrophils % (auto) 77.8 % (37.0-80.0); Platelet Count (auto) 310 10^3/uL (140-450); Red Blood Cells 5.93 10^6/uL (4.5-5.90); Red Cell Distribution Width 18.4 % (11.8-14.3); White Blood Cell 5.9 10^3/uL (4.4-10.8)
[2019-10-03 00:23] LABS: Albumin 3.2 g/dL (3.4-5.0); Calcium 8.2 mg/dL (8.5-10.1)
[2019-10-03 00:24] LABS: BUN/Creatinine Ratio 10.8
[2019-10-03 00:27] LABS: Bilirubin, Total 0.4 mg/dL (0.2-1.0); Total Protein 8.3 g/dL (6.4-8.2)
[2019-10-03 00:43] LABS: Potassium 2.9 mmol/L (3.5-5.1)
[2019-10-03] MEDS ORDERED: POTASSIUM EFFERVESENT TAB 25 MEQ PO ONE (01:00)
[2019-10-03] MEDS ORDERED: ACETAMINOPHEN 325 MG TAB PO ONE (01:45)
[2019-10-03] MEDS ORDERED: SODIUM CHLORIDE 0.9% 1,000 ML IV SCH (02:48)
[2019-10-03] MEDS ORDERED: MORPHINE SULF INJ 2 MG/ML SYRINGE 1ML IV PRN (03:00)
[2019-10-03] MEDS ORDERED: HYDROcodone-ACET 5/325MG TAB PO PRN (03:00)
[2019-10-03] MEDS ORDERED: DOCUSATE SOD 100 MG CAP PO PRN (03:00)
[2019-10-03] MEDS ORDERED: DEXTROSE (50%) 50ML SYRG IV PRN (03:00)
[2019-10-03] MEDS ORDERED: ACETAMINOPHEN 500 MG TAB PO PRN (03:00)
[2019-10-03] MEDS ORDERED: ONDANSETRON HCL 4 MG/2 ML VIAL IV PRN (03:00)
[2019-10-03] MEDS: ACCU-CHEK COMFORT CURVE STRIP VI SCH ×3 (05:46→18:15)
[2019-10-03] MEDS: InsuLIN REG 1unit/0.01ml Soln (100units/ml) SC SCH ×3 (05:55→18:41)
[2019-10-03] MEDS: ALBUTEROL SULF HFA 90MCG INH 200DOSE IN SCH ×3 (06:00→22:17)
--- NOTE | 2019-10-03 08:00 | NUR ---
Telemetry admit from ER JOSHUA FINN admitted to Telemetry unit after SBAR received. Patient oriented to Dottie Mann, primary RN, unit, room, bed, and unit policies regarding patient care and visiting hours. Patient now on continuous telemetry monitoring, tele box # and telemetry reading on arrival to unit is . Patient placed on bedside oxygen, weighed by bedscale and encouraged to call if they need something. All questions and concerns addressed, patient verbalized understanding. Note:
[2019-10-03 09:00] VITALS: BP_SYST 124; BP_SYST 129; BP_DIAS 57
[2019-10-03] MEDS: CHOLECALCIFEROL (VITD3) 1,000UNIT=25mCg TAB PO SCH (09:35)
[2019-10-03 09:40] VITALS: BP 141/73
[2019-10-03] MEDS: DOXYCYCLINE 100 MG TAB/CAP PO SCH ×2 (09:40→21:36)
[2019-10-03] MEDS: ZINC SULFATE 220mg CAP or TAB PO SCH (09:40)
[2019-10-03] MEDS ORDERED: ENOXAPARIN SOD 40 MG/0.4 ML SYRINGE SC SCH (10:00)
[2019-10-03] MEDS: FUROSEMIDE 40 MG/4 ML VIAL IV SCH (10:20)
[2019-10-03] MEDS: POTASSIUM CHL 20 Meq TABLET PO SCH (10:20)
[2019-10-03 10:44] LABS: Calcium 8.5 mg/dL (8.5-10.1); Magnesium 2.2 mg/dL (1.6-2.6); Potassium 3.1 mmol/L (3.5-5.1)
[2019-10-03 10:54] LABS: Amphetamine Screen, Urine NEGATIVE (NEGATIVE); Barbiturate Scree,Urine NEGATIVE (NEGATIVE); Benzodiazephine Screen, Urine NEGATIVE (NEGATIVE); Cannabinoid Screen, Urine NEGATIVE (NEGATIVE); Cocaine Screen, Urine NEGATIVE (NEGATIVE); Opiate Scree,Urine NEGATIVE (NEGATIVE); Phencyclidine Screen, Urine NEGATIVE (NEGATIVE)
[2019-10-03 10:59] LABS: Alcohol, Urine < 3.0 mg/dL (0-10)
[2019-10-03] MEDS: ASCORBIC ACID 1,000 MG TAB PO SCH (12:18)
[2019-10-03 12:57] VITALS: BP 132/62
[2019-10-03] MEDS ORDERED: POTASSIUM CHL 20 Meq TABLET PO ONE (13:45)
--- NOTE | 2019-10-03 14:15 | NUR ---
Respiratory note: Administered MDI tx via spacer chamber, pt tolerated well, no adverse reactions noted. HR 91, RR 20, SPO2 93% on 5lpm nasal cannula. Breath sounds dim t/o. Provided education on self-proning, encouraged pt to self-prone as tolerated. Pt denies SOB at this time, no s/s of distress noted.
[2019-10-03 16:29] LABS: CRP High Sensitivity 10.6 mg/dL (< 0.3)
[2019-10-03 17:13] VITALS: BP 135/60
--- NOTE | 2019-10-03 18:00 | NUR ---
MED REC UPDATED.
--- NOTE | 2019-10-03 19:00 | NUR ---
PT'S HOME MEDS: MULTAQ IN THE MEDICATION PYXIS. NOC SANCHEZ GARCIA AWARE THAT PT INSIST THAT HE WANTS TO TAKE HIS OWN MULTAQ MEDICATION FROM HOME.
--- NOTE | 2019-10-03 19:30 | NUR ---
CLOSING NOTES REPORT GIVEN TO GWENDOLYN GARCIA RN. PT RESTING IN BED. NO DISTRESS NOTED.
--- NOTE | 2019-10-03 20:30 | NUR ---
Opening Shift Note Assumed care of patient, awake and alert, oriented x 4. Patient on oxygen at 5l via NC with even and unlabored respirations, no S/S of distress/SOB or pain. Patient turns independently in bed and ambulates with steady gait, patient denies SOB with exertion. Instructed and educated patient on use of incentive spirometer, patient was able to return demonstration with proper use of 1800-2000ml of inspire volume and tolerated well. Bed in lowest locked position with side rails up x 2 and call light within reach. Instructed on POC and to call for assist PRN, will continue to monitor for changes Q1hr and PRN.
[2019-10-03] MEDS: APIXABAN 5 MG TAB PO SCH (21:36)
[2019-10-03] MEDS: DexAMETHasone 4 MG TAB PO SCH (21:36)
[2019-10-03] MEDS: DRONEDARONE HCL 400 MG TAB PO SCH (21:37)
[2019-10-03] MEDS: METOPROLOL SUCCINATE XL 50 MG TAB PO SCH (21:58)
[2019-10-03 22:00] VITALS: BP 127/67
[2019-10-03] MEDS ORDERED: INSULIN LANTUS (GLARGINE) 1 /0.01ml (100units/ml) SC SCH (22:00)
--- NOTE | 2019-10-03 23:30 | NUR ---
MDI GIVEN BY SANCHEZ
[2019-10-04] MEDS: ACCU-CHEK COMFORT CURVE STRIP VI SCH ×5 (00:33→22:56)
[2019-10-04] MEDS: InsuLIN REG 1unit/0.01ml Soln (100units/ml) SC SCH ×5 (00:46→22:57)
[2019-10-04 05:00] VITALS: BP 126/62
--- NOTE | 2019-10-04 05:30 | NUR ---
Rounds - o2 patient currently on 5L via NC with o2 sat 95-96%, no s/s of distress or SOB, even and unlabored respiration. Titrated oxygen to 4L via NC, reassess oxygen, o2 sat 94-95%, patient tolerating well.
[2019-10-04] MEDS: ALBUTEROL SULF HFA 90MCG INH 200DOSE IN SCH ×3 (05:49→22:48)
--- NOTE | 2019-10-04 07:00 | NUR ---
Opening Shift Note Assumed care of patient, awake and alert. No S/S of distress/SOB or pain. Instructed on POC and to call for assist PRN, will continue to monitor for changes Q1hr and PRN.
--- NOTE | 2019-10-04 07:02 | NUR ---
Closing Note patient resting in bed with oxygen on at 4L via NC with even and unlabored respirations, no s/s of distress. Endorsed care to day shift SANCHEZ Soto
--- NOTE | 2019-10-04 07:05 | NUR ---
Respiratory note: HR 86, RR 14, SPO2 93% ON 4 L NC, BS ARE CLEAR. INHALER ADMINISTERED, TOLERATED WELL. NO SIGNS OR SYMPTOMS OF RESPIRATORY DISTRESS NOTED AT THIS TIME.
[2019-10-04 09:00] VITALS: BP 131/64
[2019-10-04 09:09] LABS: Basophils # (auto) 0 10 ^3/uL (0-0.2); Eosinophils # (auto) 0 10 ^3/uL (0-0.8); Monocytes # (auto) 0.2 10 ^3/uL (0-1.3); Neutrophils # (auto) 3.9 10 ^3/uL (1.6-8.6); Red Cell Distribution Width 18.6 % (11.8-14.3); White Blood Cell 4.5 10^3/uL (4.4-10.8)
[2019-10-04 09:11] LABS: Basophils % (auto) 0.1 % (0.0-2.0); Hemoglobin 11.7 g/dL (13.5-17.5); Lymphocytes # (auto) 0.5 10 ^3/uL (0.4-5.4); Lymphocytes % (auto) 10.1 % (10.0-50.0); Mean Corpuscular Hgb Conc. 31.5 g/dL (32.0-36.0); Mean Corpuscular Volume 60.3 fL (80.0-100.0); Monocytes % (auto) 3.5 % (0.0-12.0); Neutrophils % (auto) 86.3 % (37.0-80.0); Nucleated Red Blood Cells % 0.1 %; Platelet Count (auto) 339 10^3/uL (140-450); Red Blood Cells 6.13 10^6/uL (4.5-5.90)
[2019-10-04 09:39] LABS: Calcium 8.6 mg/dL (8.5-10.1); Potassium 3.5 mmol/L (3.5-5.1)
[2019-10-04 09:41] LABS: BUN/Creatinine Ratio 11.8
[2019-10-04 09:43] LABS: Bilirubin, Total 0.5 mg/dL (0.2-1.0); Total Protein 8.2 g/dL (6.4-8.2)
[2019-10-04] MEDS: FUROSEMIDE 40 MG/4 ML VIAL IV SCH (11:05)
[2019-10-04] MEDS: levoFLOXacin 750MG 150 ML IV SCH (11:05)
[2019-10-04] MEDS: DexAMETHasone 4 MG TAB PO SCH ×2 (11:05→22:37)
[2019-10-04] MEDS: ZINC SULFATE 220mg CAP or TAB PO SCH (11:05)
[2019-10-04] MEDS: POTASSIUM CHL 20 Meq TABLET PO SCH (11:06)
[2019-10-04] MEDS: APIXABAN 5 MG TAB PO SCH ×2 (11:06→22:37)
[2019-10-04] MEDS: DOXYCYCLINE 100 MG TAB/CAP PO SCH ×2 (11:07→22:38)
[2019-10-04] MEDS: METOPROLOL SUCCINATE XL 50 MG TAB PO SCH ×2 (11:07→22:38)
[2019-10-04] MEDS: ASCORBIC ACID 1,000 MG TAB PO SCH (11:07)
[2019-10-04] MEDS: CHOLECALCIFEROL (VITD3) 1,000UNIT=25mCg TAB PO SCH (11:08)
[2019-10-04] MEDS: DRONEDARONE HCL 400 MG TAB PO SCH ×2 (11:32→22:37)
[2019-10-04 13:00] VITALS: BP 106/65
--- NOTE | 2019-10-04 13:48 | NUR ---
Respiratory note: HR 83, RR 14, SPO2 95% ON 4 L NC, BS ARE CLEAR. INHALER ADMINISTERED, TOLERATED WELL. NO SIGNS OR SYMPTOMS OF RESPIRATORY DISTRESS NOTED AT THIS TIME.
[2019-10-04 17:00] VITALS: BP 106/62
--- NOTE | 2019-10-04 17:00 | NUR ---
PATIENT IN SHOWER.
--- NOTE | 2019-10-04 19:45 | NUR ---
opening note pt A&Ox4. respirations even and nonlabored on 4Lnc. no s/s of distress at this time, will continue to monitor. pt is ambulatory. bed in low locked position, call light within reach.
[2019-10-04 22:00] VITALS: BP 114/70
[2019-10-04] MEDS: INSULIN LANTUS (GLARGINE) 1 /0.01ml (100units/ml) SC SCH (22:54)
[2019-10-05 05:00] VITALS: BP 125/64
[2019-10-05] MEDS: ACCU-CHEK COMFORT CURVE STRIP VI SCH ×4 (05:37→21:47)
[2019-10-05] MEDS: InsuLIN REG 1unit/0.01ml Soln (100units/ml) SC SCH ×4 (05:45→21:47)
[2019-10-05] MEDS: ALBUTEROL SULF HFA 90MCG INH 200DOSE IN SCH ×3 (06:40→22:08)
--- NOTE | 2019-10-05 07:05 | NUR ---
OPENING NOTE Assumed responsibility of patient at 0700. Respirations clear, equal bilaterally and unlabored. Patient verbalized that he is not having any pain at this time. Patient currently on 2L O2 via nasal canula. Bed locked in lowest position, side rails up x 2, HOB elevated at least 30 degrees and call light is within reach. Will continue to monitor.
--- NOTE | 2019-10-05 07:15 | NUR ---
closing note pt resting in left lateral position. pt denies pain or discomfort at this time. respirations even and nonlabored on 2Lnc. bed in low locked position, call light within reach.
[2019-10-05 09:00] VITALS: BP 120/62
[2019-10-05] MEDS: DRONEDARONE HCL 400 MG TAB PO SCH ×2 (09:03→21:48)
[2019-10-05] MEDS: levoFLOXacin 750MG 150 ML IV SCH (09:03)
[2019-10-05] MEDS: CHOLECALCIFEROL (VITD3) 1,000UNIT=25mCg TAB PO SCH (09:03)
[2019-10-05] MEDS: FUROSEMIDE 40 MG/4 ML VIAL IV SCH (09:05)
[2019-10-05] MEDS: DexAMETHasone 4 MG TAB PO SCH ×2 (09:06→21:48)
[2019-10-05] MEDS: METOPROLOL SUCCINATE XL 50 MG TAB PO SCH ×2 (09:07→21:50)
[2019-10-05] MEDS: DOXYCYCLINE 100 MG TAB/CAP PO SCH ×2 (09:07→21:48)
[2019-10-05] MEDS: ZINC SULFATE 220mg CAP or TAB PO SCH (09:07)
[2019-10-05] MEDS: POTASSIUM CHL 20 Meq TABLET PO SCH (09:09)
[2019-10-05] MEDS: APIXABAN 5 MG TAB PO SCH ×2 (09:09→21:49)
[2019-10-05] MEDS: ASCORBIC ACID 1,000 MG TAB PO SCH (09:10)
[2019-10-05 13:00] VITALS: BP 110/57
[2019-10-05 17:00] VITALS: BP 114/50
[2019-10-05] MEDS: INSULIN LANTUS (GLARGINE) 1 /0.01ml (100units/ml) SC SCH (21:47)
[2019-10-05 23:19] VITALS: BP 125/65
--- NOTE | 2019-10-06 03:25 | NUR ---
PT CARE RESUMED PT CURRENTLY SLEEPING, NO DISTRESS NOTED, CURRENTLY ON 3L VIA NC, NO C/O SOB, CP OR ANY OTHER DISCOMFORT, CALL LIGHT WITHIN REACH, INSTRUCTED TO CALL FOR ASSIST, PT VERBALIZED UNDERSTANDING, CONT CARE
[2019-10-06 05:54] VITALS: BP 142/80
[2019-10-06] MEDS: InsuLIN REG 1unit/0.01ml Soln (100units/ml) SC SCH ×2 (06:00→12:00)
[2019-10-06] MEDS: ACCU-CHEK COMFORT CURVE STRIP VI SCH ×2 (06:00→12:15)
[2019-10-06] MEDS: ALBUTEROL SULF HFA 90MCG INH 200DOSE IN SCH ×2 (07:35→14:12)
--- NOTE | 2019-10-06 07:35 | NUR ---
Respiratory note: PT IS AWAKE, AND ON THE PHONE. NO RESPIRATORY DISTRESS NOTED. SPO2 95% ON 2.5L NC, HR 83, RR 18, BS CLEAR/DIMINISHED BILATERALLY. 1 PUFF ALBUTEROL (90MCG) GIVEN VIA MDI WITH CHAMBER. NO ADVERSE EFFECTS NOTED. NO FURTHER RESPIRATORY INTERVENTIONS INDICATED AT THIS TIME. CHARTING COMPLETE FROM OUTSIDE OF PT ROOM DUE TO COVID-19 PRECAUTIONS/PROTOCOL
[2019-10-06 07:50] LABS: Basophils # (auto) 0 10 ^3/uL (0-0.2); Eosinophils # (auto) 0 10 ^3/uL (0-0.8); Hematocrit 35.4 % (41.0-53.0); Hemoglobin 11.1 g/dL (13.5-17.5); Nucleated Red Blood Cells % 0.1 %
[2019-10-06 07:53] LABS: Lymphocytes # (auto) 0.7 10 ^3/uL (0.4-5.4); Lymphocytes % (auto) 10.7 % (10.0-50.0); Mean Corpuscular Hgb Conc. 31.3 g/dL (32.0-36.0); Mean Corpuscular Volume 60.7 fL (80.0-100.0); Monocytes # (auto) 0.4 10 ^3/uL (0-1.3); Monocytes % (auto) 6.4 % (0.0-12.0); Neutrophils # (auto) 5.7 10 ^3/uL (1.6-8.6); Neutrophils % (auto) 82.9 % (37.0-80.0); Platelet Count (auto) 460 10^3/uL (140-450); Red Blood Cells 5.84 10^6/uL (4.5-5.90); White Blood Cell 6.9 10^3/uL (4.4-10.8)
[2019-10-06 08:00] VITALS: BP 140/82
[2019-10-06 08:03] LABS: Potassium 3.4 mmol/L (3.5-5.1)
[2019-10-06 08:13] LABS: Albumin 2.9 g/dL (3.4-5.0); Bilirubin, Total 0.4 mg/dL (0.2-1.0); CRP High Sensitivity 2.35 mg/dL (< 0.3); Calcium 8.7 mg/dL (8.5-10.1); Total Protein 7.9 g/dL (6.4-8.2)
[2019-10-06] MEDS: levoFLOXacin 750MG 150 ML IV SCH (09:30)
[2019-10-06] MEDS: POTASSIUM CHL 20 Meq TABLET PO SCH (09:31)
[2019-10-06] MEDS: ZINC SULFATE 220mg CAP or TAB PO SCH (09:31)
[2019-10-06] MEDS: DOXYCYCLINE 100 MG TAB/CAP PO SCH (09:32)
[2019-10-06] MEDS: APIXABAN 5 MG TAB PO SCH (09:32)
[2019-10-06] MEDS: DexAMETHasone 4 MG TAB PO SCH (09:33)
[2019-10-06] MEDS: DRONEDARONE HCL 400 MG TAB PO SCH (09:54)
[2019-10-06] MEDS: ASCORBIC ACID 1,000 MG TAB PO SCH (10:00)
[2019-10-06] MEDS: CHOLECALCIFEROL (VITD3) 1,000UNIT=25mCg TAB PO SCH (10:00)
[2019-10-06] MEDS: METOPROLOL SUCCINATE XL 50 MG TAB PO SCH (10:02)
[2019-10-06] MEDS: FUROSEMIDE 40 MG/4 ML VIAL IV SCH (10:02)
[2019-10-06] MEDS ORDERED: ALBUAER3 IN (10:06)
[2019-10-06] MEDS ORDERED: POTA-220 PO (10:07)
[2019-10-06] MEDS ORDERED: CHOL1000 PO (10:07)
[2019-10-06] MEDS ORDERED: MULTTAB75 PO (10:07)
[2019-10-06] MEDS ORDERED: FURO20TA3 PO (10:07)
[2019-10-06] MEDS ORDERED: LEVO750T64 PO (10:07)
[2019-10-06] MEDS ORDERED: ASCO10003 PO (10:07)
[2019-10-06] MEDS ORDERED: METH4PAK PO (10:17)
--- NOTE | 2019-10-06 10:30 | NUR ---
OXYGEN TITRATED TO 2.5L VIA NC O2 SATURATION 93%, RR20, NO C/O SOB OR ANY DISTRESS NOTED, CONT CARE
[2019-10-06 11:00] VITALS: BP 140/82
--- NOTE | 2019-10-06 11:30 | NUR ---
INCENTIVE SPIROMETER PT INSTRUCTED TO USE IS Q1HR WA, PT ABLE TO RETURN DEMONSTRATION RAISED METER TO 2000 X4, TOLERATED, NO C/O SOB, CONT CARE
[2019-10-06 13:00] VITALS: BP_SYST 134; BP_SYST 140; BP_DIAS 82; BP_DIAS 93
[2019-10-06 13:56] VITALS: BP 140/82
--- NOTE | 2019-10-06 14:12 | NUR ---
Respiratory note: PT IS RESTING COMFORTABLY. NO RESPIRATORY DISTRESS NOTED. SPO2 95% ON 2.5L NC, HR 79, RR 18, BS CLEAR/DIMINISHED BILATERALLY. 1 PUFF ALBUTEROL (90MCG) GIVEN VIA MDI WITH CHAMBER. NO ADVERSE EFFECTS NOTED. NO FURTHER RESPIRATORY INTERVENTIONS INDICATED AT THIS TIME. CHARTING COMPLETE FROM OUTSIDE OF PT ROOM DUE TO COVID-19 PRECAUTIONS/PROTOCOL
--- NOTE | 2019-10-06 15:08 | NUR ---
Assessment Patient is a 49- year-old who is alert and oriented. Prior to admission patient lived home with family and function independently. Per patient he can care for his own ADLs. Per patient he does not have any medical equipment now. Per patient he will return to his prior living arrangements post discharge and family will transport him home. Advised patient there is a social service consult for home oxygen. Informed patient clinical information will be faxed to [employer]. Advised patient to follow up with his primary doctor. Informed patient he has the right to participate in all discharge planning. Patient verbalized understanding and agreed to discharge plan. Faxed clinical information to [employer] requesting for them to deliver portable to [facility]. Per Rodriguez with [employer] oxygen portable and concentrate oxygen will be deliver to home and family will bring it to hospital when he is ready to discharge. Nurse was informed. Addendum: 10/06/19 at 1514 by ALEXA JERRY Amended: Links added.
--- NOTE | 2019-10-06 16:00 | NUR ---
DISCHARGE Discharge instructions given as ordered. Encourage to follow up with PMD as instructed, Unable to make an appointment, out for lunch, patient instructed to call DR Tidwell and make an appointment. All questions and concerns addressed. Patient verbalized understanding. Medication reconciliation form completed and copy given to patient. IV removed with catheter intact, pressure dressing applied. Patient taken to vehicle via wheelchair with all personal belongings and proper covid isolation guidelines, accompanied by staff, security and EVS and family awaiting for patient in front lobby with portable oxygen. No distress noted at time of departure.
== END 2019-10-06 16:00 | disposition home or self-care (01) | DRG 720 ==
LOC: ER 22:53 → EDBD 22:53 → OVERFLOW 22:54 → EDUNIT# 22:54 → EAST 10-03 08:31
PROVIDERS: ADMIT Hospitalist; ATTEND Internal Medicine
DX: A41.89 Other specified sepsis (principal); U07.1 COVID-19; D68.69 Other thrombophilia; I48.91 Unspecified atrial fibrillation; J12.89 Other viral pneumonia; J96.00 Acute respiratory failure, unspecified whether with hypoxia or hypercapnia; E66.01 Morbid (severe) obesity due to excess calories; D50.9 Iron deficiency anemia, unspecified; I10 Essential (primary) hypertension; E87.6 Hypokalemia; E11.65 Type 2 diabetes mellitus with hyperglycemia; Z79.01 Long term (current) use of anticoagulants; Z79.4 Long term (current) use of insulin; Z68.36 Body mass index [BMI] 36.0-36.9, adult
CPT/HCPCS: 36415; 71045; 80048; 80053; 80307; 82728; 82962; 83036; 83615; 83735; 85025; 85379; 86141; 93005; 94640; 96360; G0378; J1815; J1956

== ENCOUNTER 2020-02-04 07:23 | Emergency (ER) | payer MEDICAID ==
[~2020-02-04] VITALS: Ht 177.8 cm; Wt 116.6 kg
[~2020-02-04 07:23] MED LIST changes: +ALBUAER3 IN; +ASCO10003 PO; +CHOL1000 PO; -CLON0.1T PO; +FURO20TA3 PO; +LEVO750T64 PO; +METH4PAK PO; +MULTTAB75 PO; +POTA-220 PO
[2020-02-04 07:33] VITALS: BP 161/89
[2020-02-04 08:52] LABS: Basophils # (auto) 0.1 10 ^3/uL (0-0.2); Eosinophils # (auto) 0.3 10 ^3/uL (0-0.8); Lymphocytes % (auto) 24.3 % (10.0-50.0); Mean Corpuscular Hgb Conc. 31.5 g/dL (32.0-36.0); Mean Corpuscular Volume 61.1 fL (80.0-100.0); Monocytes # (auto) 0.5 10 ^3/uL (0-1.3); Neutrophils # (auto) 3.7 10 ^3/uL (1.6-8.6); Red Cell Distribution Width 16.2 % (11.8-14.3)
[2020-02-04 08:54] LABS: Basophils % (auto) 1.3 % (0.0-2.0); Eosinophils % (auto) 4.5 % (0.0-7.0); Hematocrit 35.7 % (41.0-53.0); Hemoglobin 11.3 g/dL (13.5-17.5); Lymphocytes # (auto) 1.4 10 ^3/uL (0.4-5.4); Mean Corpuscular Hemoglobin 19.3 pg (28.0-32.0); Monocytes % (auto) 7.6 % (0.0-12.0); Neutrophils % (auto) 62.3 % (37.0-80.0); Platelet Count (auto) 385 10^3/uL (140-450); Red Blood Cells 5.84 10^6/uL (4.5-5.90); White Blood Cell 5.9 10^3/uL (4.4-10.8)
[2020-02-04 09:10] LABS: Albumin 3.8 g/dL (3.4-5.0); Calcium 8.7 mg/dL (8.5-10.1); Potassium 3.7 mmol/L (3.5-5.1)
[2020-02-04 09:13] LABS: BUN/Creatinine Ratio 11.5; Bilirubin, Total 0.4 mg/dL (0.2-1.0)
== END 2020-02-04 10:10 | disposition home or self-care (01) ==
LOC: ER 07:23
DX: K76.0 Fatty (change of) liver, not elsewhere classified (principal); K46.9 Unspecified abdominal hernia without obstruction or gangrene; E11.9 Type 2 diabetes mellitus without complications; I10 Essential (primary) hypertension; Z88.0 Allergy status to penicillin
CPT/HCPCS: 36415; 74176; 76705; 80053; 83690; 85025

== ENCOUNTER 2021-10-24 22:32 | Inpatient (IN) | payer MEDICAID ==
[~2021-10-24] VITALS: Ht 177.8 cm; Wt 115.2 kg
[~2021-10-24 22:32] MED LIST changes: +AMLO-496 PO; -AMLO10TA13 PO; +APIX5TAB PO; -CHOL1000 PO; +CHOL1TAB30 PO; +DRON400T PO; +INSU100I26 SC; +INSU1INJ19 SC; +METO-289 PO
[2021-10-25 02:11] LABS: Basophils # (auto) 0.1 10 ^3/uL (0-0.2); Eosinophils # (auto) 0.4 10 ^3/uL (0-0.8); Lymphocytes # (auto) 2.1 10 ^3/uL (0.4-5.4); Mean Corpuscular Volume 56.3 fL (80.0-100.0); Monocytes # (auto) 0.8 10 ^3/uL (0-1.3); Neutrophils # (auto) 4.9 10 ^3/uL (1.6-8.6)
[2021-10-25 02:13] LABS: Basophils % (auto) 1.3 % (0.0-2.0); Eosinophils % (auto) 4.6 % (0.0-7.0); Hematocrit 35.7 % (41.0-53.0); Mean Corpuscular Hemoglobin 17.3 pg (28.0-32.0); Mean Corpuscular Hgb Conc. 30.7 g/dL (32.0-36.0); Monocytes % (auto) 9.4 % (0.0-12.0); Neutrophils % (auto) 59.7 % (37.0-80.0); Red Blood Cells 6.34 10^6/uL (4.5-5.90); Red Cell Distribution Width 18.4 % (11.8-14.3); White Blood Cell 8.2 10^3/uL (4.4-10.8)
[2021-10-25 02:29] LABS: Albumin 4.1 g/dL (3.4-5.0); BUN/Creatinine Ratio 16.7; Calcium 9.1 mg/dL (8.5-10.1); Potassium 3.8 mmol/L (3.5-5.1)
[2021-10-25 02:32] LABS: Bilirubin, Total 0.5 mg/dL (0.2-1.0); Total Protein 8.3 g/dL (6.4-8.2)
[2021-10-25] MEDS ORDERED: HEPARIN SODIUM (PORCINE) 5000 UNITS/ML 1ML VIAL ONE (05:54)
[2021-10-25] MEDS ORDERED: ALTEPLASE (RECOMBINANT) 100 MG in STERILE WATER 100 ML IV ONE (06:00)
[2021-10-25] MEDS ORDERED: HEPARIN DRIP/D5W 100UNITS/ML 250 ML IV SCH (08:00)
[2021-10-25 08:09] LABS: INR 0.92 (0.9-1.15); Partial Thromboplastin Time 25.6 sec (24.6-33.4)
[2021-10-25] MEDS ORDERED: ONDANSETRON HCL 4 MG/2 ML VIAL IV PRN (09:30)
[2021-10-25] MEDS ORDERED: MORPHINE SULFATE INJ 2 MG/ml SYRG IV PRN ×2 (09:30)
[2021-10-25] MEDS ORDERED: NITROGLYCERIN 0.4 MG SL TAB SL PRN ×2 (09:30→10:45)
[2021-10-25] MEDS: ASPirin 81 mg TAB PO SCH (10:18)
[2021-10-25] MEDS ORDERED: HYDROcodone-ACET 5/325MG TAB PO PRN (10:45)
[2021-10-25] MEDS ORDERED: DEXTROSE (50%) 50ML SYRG IV PRN (10:45)
[2021-10-25] MEDS ORDERED: hydrALAZINE HCL 20 MG/ML VL IV PRN (10:45)
[2021-10-25] MEDS ORDERED: METOPROLOL SUCCINATE XL 50 MG TAB PO SCH (11:15)
[2021-10-25] MEDS: DRONEDARONE HCL 400 MG TAB PO SCH ×2 (11:45→23:01)
[2021-10-25] MEDS: FUROSEMIDE 20 MG TAB PO SCH (12:12)
[2021-10-25] MEDS: amLODIPine BESYLATE 5 MG TAB PO SCH (12:13)
[2021-10-25] MEDS: PANTOPRAZOLE 40 MG TAB PO SCH (12:13)
[2021-10-25] MEDS: ENOXAPARIN SOD 120 MG/0.8 ML SYRINGE SC SCH ×2 (12:13→23:02)
[2021-10-25] MEDS: ACCU-CHEK COMFORT CURVE STRIP VI SCH ×3 (12:14→22:51)
[2021-10-25] MEDS: InsuLIN REG 1unit/0.01ml Soln (100units/ml) SC SCH ×3 (12:29→22:56)
[2021-10-25 17:00] VITALS: BP 144/80
[2021-10-25 17:31] VITALS: BP 144/80
[2021-10-25] MEDS ORDERED: HYDR25TA5 PO (17:42)
[2021-10-25] MEDS ORDERED: LOSA-69 PO (17:42)
[2021-10-25 22:00] VITALS: BP 148/85
[2021-10-25] MEDS: INSULIN LANTUS (GLARGINE) 1 /0.01ml (100units/ml) SC SCH (22:58)
[2021-10-25] MEDS: METOPROLOL TARTRATE 50 MG TAB PO SCH (23:01)
[2021-10-26 05:00] VITALS: BP 119/73
[2021-10-26] MEDS: ACCU-CHEK COMFORT CURVE STRIP VI SCH ×4 (06:07→21:28)
[2021-10-26] MEDS: InsuLIN REG 1unit/0.01ml Soln (100units/ml) SC SCH ×4 (06:11→21:35)
[2021-10-26 07:02] LABS: Basophils # (auto) 0.1 10 ^3/uL (0-0.2); Eosinophils # (auto) 0.5 10 ^3/uL (0-0.8); Hemoglobin 10.3 g/dL (13.5-17.5); Monocytes # (auto) 0.7 10 ^3/uL (0-1.3); Monocytes % (auto) 9.9 % (0.0-12.0); Nucleated Red Blood Cells % 0.1 %
[2021-10-26 07:03] LABS: Basophils % (auto) 1.3 % (0.0-2.0); Eosinophils % (auto) 6.9 % (0.0-7.0); Hematocrit 33.4 % (41.0-53.0); Lymphocytes # (auto) 2.1 10 ^3/uL (0.4-5.4); Lymphocytes % (auto) 28.6 % (10.0-50.0); Mean Corpuscular Hemoglobin 17.5 pg (28.0-32.0); Mean Corpuscular Hgb Conc. 30.9 g/dL (32.0-36.0); Mean Corpuscular Volume 56.6 fL (80.0-100.0); Neutrophils # (auto) 3.9 10 ^3/uL (1.6-8.6); Neutrophils % (auto) 53.3 % (37.0-80.0); Red Blood Cells 5.91 10^6/uL (4.5-5.90); Red Cell Distribution Width 18.2 % (11.8-14.3); White Blood Cell 7.4 10^3/uL (4.4-10.8)
[2021-10-26 07:09] LABS: Albumin 3.7 g/dL (3.4-5.0); Potassium 3.7 mmol/L (3.5-5.1)
[2021-10-26 07:14] LABS: Bilirubin, Total 0.7 mg/dL (0.2-1.0); Total Protein 7.4 g/dL (6.4-8.2)
[2021-10-26] MEDS ORDERED: REGADENOSON 0.4 MG/5 ML SYRG IV ONE ×2 (07:45→09:03)
[2021-10-26 09:25] VITALS: BP 126/70
[2021-10-26] MEDS: DRONEDARONE HCL 400 MG TAB PO SCH ×2 (10:00→21:27)
[2021-10-26] MEDS: amLODIPine BESYLATE 5 MG TAB PO SCH ×2 (10:00→10:03)
[2021-10-26] MEDS: ASPirin 81 mg TAB PO SCH (10:01)
[2021-10-26] MEDS: PANTOPRAZOLE 40 MG TAB PO SCH (10:01)
[2021-10-26] MEDS: LOSARTAN POTASSIUM 50 MG TAB PO SCH (10:03)
[2021-10-26] MEDS: ENOXAPARIN SOD 120 MG/0.8 ML SYRINGE SC SCH ×2 (10:03→21:28)
[2021-10-26] MEDS: FUROSEMIDE 20 MG TAB PO SCH (10:04)
[2021-10-26] MEDS: METOPROLOL TARTRATE 50 MG TAB PO SCH ×3 (10:04→22:00)
[2021-10-26 13:05] VITALS: BP 110/54
[2021-10-26 16:41] VITALS: BP 126/76
[2021-10-26] MEDS ORDERED: PANT40T PO (17:16)
[2021-10-26] MEDS ORDERED: MET50T PO (17:16)
[2021-10-26] MEDS ORDERED: ASPI-325 PO (17:16)
[2021-10-26] MEDS ORDERED: AML5T PO (17:16)
[2021-10-26] MEDS: INSULIN LANTUS (GLARGINE) 1 /0.01ml (100units/ml) SC SCH (21:34)
[2021-10-26 22:00] VITALS: BP 118/69
[2021-10-27 05:00] VITALS: BP 126/75
[2021-10-27] MEDS: ACCU-CHEK COMFORT CURVE STRIP VI SCH ×2 (07:08→11:30)
[2021-10-27] MEDS: InsuLIN REG 1unit/0.01ml Soln (100units/ml) SC SCH ×2 (07:12→11:30)
[2021-10-27 09:00] VITALS: BP 116/77
[2021-10-27] MEDS: amLODIPine BESYLATE 5 MG TAB PO SCH (10:00)
[2021-10-27] MEDS: METOPROLOL TARTRATE 50 MG TAB PO SCH (10:00)
[2021-10-27] MEDS: FUROSEMIDE 20 MG TAB PO SCH (10:00)
[2021-10-27] MEDS: ENOXAPARIN SOD 120 MG/0.8 ML SYRINGE SC SCH (10:00)
[2021-10-27] MEDS: LOSARTAN POTASSIUM 50 MG TAB PO SCH (10:00)
[2021-10-27] MEDS: ASPirin 81 mg TAB PO SCH (10:04)
[2021-10-27] MEDS: DRONEDARONE HCL 400 MG TAB PO SCH (10:05)
[2021-10-27] MEDS: PANTOPRAZOLE 40 MG TAB PO SCH (10:06)
[2021-10-27 10:59] VITALS: BP 116/77
== END 2021-10-27 12:15 | disposition home or self-care (01) | DRG 198 ==
LOC: ER 22:32 → TELE 10-25 09:25 → TELE-CENTR 10-25 17:05
PROVIDERS: ADMIT Internal Medicine; ATTEND Internal Medicine
DX: I20.0 Unstable angina (principal); E11.65 Type 2 diabetes mellitus with hyperglycemia; E66.9 Obesity, unspecified; I10 Essential (primary) hypertension; I48.0 Paroxysmal atrial fibrillation; Z20.822 Contact with and (suspected) exposure to COVID-19; Z88.0 Allergy status to penicillin; Z79.01 Long term (current) use of anticoagulants; Z83.3 Family history of diabetes mellitus; Z82.49 Family history of ischemic heart disease and other diseases of the circulatory system; Z79.899 Other long term (current) drug therapy; Z68.36 Body mass index [BMI] 36.0-36.9, adult; Z79.4 Long term (current) use of insulin
CPT/HCPCS: 36415; 71045; 78452; 80053; 80061; 82962; 83036; 83735; 83880; 84484; 85025; 85610; 85730; 93005; 93017; 93306; G0378; J1815